=== PATIENT | female | born 1945 | race Caucasian/White ===

== ENCOUNTER 2018-08-11 14:55 | Observation (INO) | payer MEDICARE ==
[~2018-08-11] VITALS: Ht 162.6 cm; Wt 77.1 kg
[2018-08-11 16:04] LABS: BASOPHILS % 0.2 % (0.0-1.0); EOSINOPHILS % 0.2 % (0.0-6.0); HEMATOCRIT 47.1 % (34.2-44.1); HEMOGLOBIN 16.1 g/dL (12.0-16.0); LYMPHOCYTES # (AUTO) 0.4 (1.0-3.2); LYMPHOCYTES % 3.5 % (18.0-39.1); MEAN CORPUSCULAR HEMOGLOBIN 32.2 pg (28-32); MEAN CORPUSCULAR HGB CONC 34.2 g/dL (31-35); MEAN CORPUSCULAR VOLUME 94.2 fL (81-99); MONOCYTES # (AUTO) 0.5 (0.2-0.8); MONOCYTES % 5.1 % (4.4-11.3); NEUTROPHILS # (AUTO) 9.1 (2.1-6.9); NEUTROPHILS % 90.7 % (38.7-80.0); PLATELET COUNT 143 x10e3/uL (140-360)
[2018-08-11 16:17] LABS: ALBUMIN/GLOBULIN RATIO 0.8 (0.8-2.0); CALCIUM 10.3 mg/dL (8.4-10.2); CREATININE, SERUM 0.94 mg/dL (0.57-1.11)
[2018-08-11 16:24] LABS: CLARITY,URINE HAZY (CLEAR); COLOR,URINE YELLOW (YELLOW); LEUKOCYTE ESTERASE ,URINE 1+ (NEGATIVE); NITRITE,URINE NEGATIVE (NEGATIVE)
[2018-08-11 16:25] LABS: BILIRUBIN,URINE NEGATIVE (NEGATIVE); KETONES,URINE NEGATIVE (NEGATIVE); PROTEIN,URINE DIPSTICK 1+ (NEGATIVE); URINE UROBILINOGEN 0.2 mg/dL (0.2 - 1)
[2018-08-11 16:27] LABS: BACTERIA,URINE MANY /HPF; WBC,URINE (MAN) 21-50 /HPF (0-5)
[2018-08-11 16:28] LABS: AMORPHOUS SEDIMENT,URINE MODERATE (FEW); EPITHELIAL CELLS,URINE MODERATE /LPF; YEAST,URINE FEW
[2018-08-11] MEDS ORDERED: SODIUM CHLORIDE FLUSH 10 ML SYR INJ PRN (16:30)
[2018-08-11] MEDS: SODIUM CHLORIDE 0.9% 1000ML 1,000 ML IV SCH (16:59)
[2018-08-11] MEDS ORDERED: CEFTRIAXONE SOD 1 GM/NS 50 ML 50 ML IV SCH (17:00)
[2018-08-11] MEDS ORDERED: ACETAMINOPHEN 325 MG TAB PO STA (17:16)
--- NOTE | 2018-08-11 17:33 | NUR ---
report received from Leigh, patient to arrive to unit via stretcher alert and oriented.
--- NOTE | 2018-08-11 18:15 | NUR ---
patient arrived on unit, alert and oriented. call leal within reach, bed in lowest position and family at bedside.
[2018-08-11 18:40] VITALS: BP 157/74
--- NOTE | 2018-08-11 18:50 | NUR ---
rounded with machinist 2nd shift nurse, patient aware of change. call leal within reach and bed in lowest position.
--- NOTE | 2018-08-11 19:00 | NUR ---
Report received and walking rounds complete. Pt A&O and in no apparent distress. Pt resting in bed. All safety measures ensured, bed alarm on, and call leal near. Pt encouraged to use call leal for assistance.
[2018-08-11 19:25] VITALS: BP 132/60
[2018-08-11 19:59] VITALS: BP 132/60
[2018-08-12 00:10] VITALS: BP_SYST 106; BP_SYST 160; BP_DIAS 57; BP_DIAS 67
[2018-08-12] MEDS: SODIUM CHLORIDE 0.9% 1000ML 1,000 ML IV SCH (01:08)
[2018-08-12 05:01] VITALS: BP 127/60
[2018-08-12 05:30] LABS: BASOPHILS % 0.5 % (0.0-1.0); EOSINOPHILS # (AUTO) 0.3 (0.0-0.4); EOSINOPHILS % 4.2 % (0.0-6.0); HEMATOCRIT 39.6 % (34.2-44.1); HEMOGLOBIN 13.4 g/dL (12.0-16.0); LYMPHOCYTES # (AUTO) 0.5 (1.0-3.2); LYMPHOCYTES % 8.7 % (18.0-39.1); MEAN CORPUSCULAR HEMOGLOBIN 32.1 pg (28-32); MEAN CORPUSCULAR HGB CONC 33.8 g/dL (31-35); MEAN CORPUSCULAR VOLUME 94.7 fL (81-99); MONOCYTES # (AUTO) 0.8 (0.2-0.8); MONOCYTES % 13.2 % (4.4-11.3); NEUTROPHILS # (AUTO) 4.3 (2.1-6.9); NEUTROPHILS % 73.1 % (38.7-80.0); PLATELET COUNT 121 x10e3/uL (140-360); RED BLOOD COUNT 4.18 x10e6/uL (3.6-5.1); RED CELL DISTRIBUTION WIDTH 13.2 % (11.7-14.4)
[2018-08-12 05:55] LABS: ALANINE AMINOTRANSFERASE 26 IU/L (0-55); ALBUMIN 3.3 g/dL (3.5-5.0); ALKALINE PHOSPHATASE 56 IU/L (40-150); ANION GAP 10.4 mmol/L (8-16); BLOOD UREA NITROGEN 12 mg/dL (7-26); BUN/CREATININE RATIO 16 (6-25); CALCIUM 8.9 mg/dL (8.4-10.2); CARBON DIOXIDE 24 mmol/L (22-29); CHLORIDE 109 mmol/L (98-107); CREATININE, SERUM 0.77 mg/dL (0.57-1.11); EST GLOMERULAR FILTRATION RATE > 60 ML/MIN (60-); GLUCOSE 161 mg/dL (74-118); POTASSIUM 3.4 mmol/L (3.5-5.1); SODIUM 140 mmol/L (136-145)
--- NOTE | 2018-08-12 06:57 | NUR ---
Report given and walking rounds complete. Pt resting in bed and in no apparent distress. All safety measures ensured.
[2018-08-12 07:10] VITALS: BP 154/76
[2018-08-12 08:14] VITALS: BP 154/76
[2018-08-12] MEDS ORDERED: CIPRO500 MG PO (08:51)
[2018-08-12] MEDS ORDERED: DIFLUCAN100 MG PO (08:52)
--- NOTE | 2018-08-12 09:52 | NUR ---
patient alert and oriented. discharge instructions given at this time, patient verbalized understanding. IV discontinued, catheter in tact and small dressing applied. Patient to be wheeled to private auto for daughter to drive home.
--- NOTE | 2018-08-12 10:26 | NUR ---
Met with patient earlier this morning before she discharged. CASE MANAGEMENT INITIAL ASSESSMENT Tripe Scraper to bedside to discuss plan of care with patient/family. CM/SW role and care transitions discussed. Anticipated discharge plan discussed along with duration of care. CM/SW discussed patients right to make decisions in care. CM/SW work hours given. Patient lives: WITH HER DAUGHTER, LITA KNOX WHO WORKS HERE AT [facility] Admit/Transfer: ED THRU [facility] Hospital/ER visits since last admit: DENIES POA/Emergency contact: DAUGHTER: LITA KNOX [phone] Current/Previous Home Health: DENIES PCP/Follow-up Care: NONE. STATES HAS RECENTLY MOVED HERE Current/Previous DME: NONE Medications (referring to index hospitalization or the first time you were in the hospital) a. Were changes made in your medications when you were in the hospital on [date of index hospitalization]? Yes X No Not sure Explain: Note: If no or not sure, please skip to question d b. Did you understand the changes? Yes No Explain: c. Were you able to obtain your new medications right away? Yes No n/a SNF only Explain: d. Were you able to take your medications like the doctor wanted you to? X Yes No Explain: e. Did the hospital give you an accurate, easy to understand list of medications when you left? X Yes No n/a SNF only Explain: Scale of 1-10 how comfortable does patient feel with disease management in outpatient settin Other Services: Employment Status: RETIRED Areas of Concerns: NONE Referral Needs: NONE Education Needs: PRATER LETTER IMM/PRATER given and signed (if applicable): EDUCATED ON PRATER LETTER, VERBALIZED UNDERSTANDING AND SIGNED. COPY TO PT AND ORIGINAL PLACED IN CHART Goal for discharge:DC HOME TODAY W/O NEEDS CM/SW left business card at the bedside with contact information. Name and number was also written on the patients whiteboard. Patient verbalized understanding of discussion. CM will follow-up with ongoing discharge and transition of care needs.
--- NOTE | 2018-08-12 14:56 | History and Physical ---
CHIEF COMPLAINT: Allergic reaction to Macrobid and urinary tract infection. HISTORY OF PRESENT ILLNESS: A 73-year-old female, with urinary tract infection, came to outpatient urgent care, was given Macrobid, went home, had significant multiple symptoms of side effect of the Macrobid, came back to the emergency room here and was given Rocephin. The patient is otherwise stable. She denies any chest pain or shortness of breath. Her symptoms of dysuria, increase in urinary frequency have improved since giving Rocephin. The patient want to go home. PAST MEDICAL HISTORY: Urinary tract infection recurrent, but last was about approximately 6-9 months ago. Diabetes type 2. Hypertension. PAST SURGICAL HISTORY: Hysterectomy. SOCIAL HISTORY: The patient does not smoke or use alcohol. No recreational drugs. ALLERGIES: TO MACROBID. HOME MEDICATION: List was reviewed. REVIEW OF SYSTEMS: Asymptomatic. PHYSICAL EXAMINATION: VITAL SIGNS: Temperature is 98, blood pressure 127/62, pulse rate 88, respirations 18. GENERAL: The patient is in no acute distress. She is awake. HEENT: Normocephalic, atraumatic. Anicteric. NECK: Supple grossly. PULMONARY: Clear. CARDIOVASCULAR: Regular rate and rhythm. ABDOMEN: Soft and unremarkable. EXTREMITIES: No cyanosis or edema. NEUROLOGIC: No gross focal deficit. LABORATORY DATA: Sodium is 140, potassium 3.4, chloride is 109, bicarb 24, BUN is 12, creatinine 0.7, glucose 161. WBC is 5.8, hemoglobin 13.4, hematocrit 39.6, platelets are 121. Liver enzymes unremarkable. Urinalysis; 1+ leukocyte esterase, many bacteria, few yeast. IMPRESSION: 1. Urinary tract infection. 2. Allergic reaction to Macrobid. PLAN: Give the patient Rocephin. Discharge the patient with Cipro for now. We will give the patient some Diflucan as well. The patient is stable. She will need to follow up with her family physician for any further adjustment of her medication. The patient had tolerated Cipro treatment in the past. The patient is asymptomatic. She want to go home for the holiday and I agree. Discharge the patient home today. MD KEISHA Saeed/ANDRY /[id number]
--- NOTE | 2018-08-12 21:13 | Discharge Summary ---
Please review my history and physical I have dictated. DIAGNOSES: 1. Simple urinary tract infection. 2. Yeast in the urine. 3. Allergic reaction to Macrobid. The patient will go home with Diflucan and Cipro. Please review the prescription. The patient is stable, discharged home today. She is asymptomatic. No further workup needed at this time. The patient is to follow up with her family doctor within a week. MD KEISHA Saeed/SHANNONL /[id number]
== END 2018-08-12 10:05 | disposition home or self-care (01) ==
LOC: ER 14:55 → ERHOLD 16:41 → IMCU 18:15
PROVIDERS: ADMIT Internal Medicine; ATTEND Internal Medicine
DX: B37.49 Other urogenital candidiasis (principal); T37.8X5A Adverse effect of other specified systemic anti-infectives and antiparasitics, initial encounter
CPT/HCPCS: 36415 ×2; 80053 ×2; 81001; 82948 ×2; 85025 ×2; 87086; 99284; G0378 ×2; J0696; J7030

== ENCOUNTER → 2019-07-06 | Outpatient (CLI) | payer MEDICARE ==
[~2019-07-06] MED LIST: CIPRO500 MG PO; DIFLUCAN100 MG PO
== END ==
LOC: MAMMO 09:17
PROVIDERS: ATTEND Internal Medicine
DX: Z12.31 Encounter for screening mammogram for malignant neoplasm of breast (principal); M89.9 Disorder of bone, unspecified
CPT/HCPCS: 77067; 77080

== ENCOUNTER 2019-07-20 09:56 | Outpatient (RCR) | payer MEDICARE | END 2019-07-24 | LOC: PT 09:56 | PROVIDERS: ATTEND Orthopaedic Surgery | DX: M17.12 Unilateral primary osteoarthritis, left knee (principal) ==

== ENCOUNTER → 2020-04-23 | Outpatient (CLI) | payer MEDICARE, OTHER ==
[~2020-04-23] MED LIST changes: +COVID-19 VACC, MRNA(MODERNA)/PF 100 MCG/0.5 ML VIAL IM ONE
== END ==
LOC: VACCPMC 18:30
DX: Z23 Encounter for immunization (principal); Z20.828 Contact with and (suspected) exposure to other viral communicable diseases

== ENCOUNTER 2020-05-18 10:01 | Inpatient (IN) | payer MEDICARE, OTHER ==
[~2020-05-18] VITALS: Ht 165.1 cm; Wt 78.7 kg
[~2020-05-18 10:01] MED LIST changes: -COVID-19 VACC, MRNA(MODERNA)/PF 100 MCG/0.5 ML VIAL IM ONE
[2020-05-18] MEDS ORDERED: LEVOTHYROXINE75 MCG PO (10:39)
[2020-05-18] MEDS ORDERED: JANUVIA100 MG PO (10:39)
[2020-05-18] MEDS ORDERED: FOSINOPRIL SODI10 MG PO (10:39)
[2020-05-18] MEDS ORDERED: CRESTOR10 MG PO (10:39)
[2020-05-18] MEDS ORDERED: DEXTROSE 50% SYRINGE 50 ML IV PRN (20:00)
[2020-05-18] MEDS ORDERED: INSULIN LISPRO 100 UNIT/1 ML 3ML VIAL SQ SCH (21:00)
[2020-05-19] MEDS ORDERED: SIMVASTATIN 40 MG TAB PO SCH (09:00)
[2020-05-19] MEDS ORDERED: LEVOTHYROXINE SODIUM 75 MCG TAB PO SCH (09:00)
[2020-05-19] MEDS ORDERED: FOSINOPRIL SODIUM 10 MG TAB PO SCH (09:00)
== END 2020-05-18 20:38 | disposition left against medical advice (07) | DRG 310 ==
LOC: FSED 11:17 → ERHOLD 12:15
PROVIDERS: ADMIT Internal Medicine; ATTEND Internal Medicine
DX: R00.2 Palpitations (principal); I10 Essential (primary) hypertension; E78.5 Hyperlipidemia, unspecified; E03.9 Hypothyroidism, unspecified; D86.9 Sarcoidosis, unspecified; Z85.3 Personal history of malignant neoplasm of breast; E11.9 Type 2 diabetes mellitus without complications; Z20.822 Contact with and (suspected) exposure to COVID-19; I49.3 Ventricular premature depolarization
CPT/HCPCS: 71045; 80053; 84484; 85025; 93005; 99284; U0002

== ENCOUNTER → 2020-05-26 | Outpatient (CLI) | payer OTHER ==
[~2020-05-26] MED LIST changes: +COVID-19 VACC, MRNA(MODERNA)/PF 100 MCG/0.5 ML VIAL IM ONE; +CRESTOR10 MG PO; +FOSINOPRIL SODI10 MG PO; +JANUVIA100 MG PO; +LEVOTHYROXINE75 MCG PO
== END ==
LOC: VACCPMC 10:09
DX: Z23 Encounter for immunization (principal); Z20.822 Contact with and (suspected) exposure to COVID-19
CPT/HCPCS: 0012A; 91301

== ENCOUNTER → 2020-07-07 | Outpatient (CLI) | payer MEDICARE ==
[~2020-07-07] MED LIST changes: -COVID-19 VACC, MRNA(MODERNA)/PF 100 MCG/0.5 ML VIAL IM ONE
== END ==
LOC: MAMMO 09:33
PROVIDERS: ATTEND Internal Medicine
DX: Z12.31 Encounter for screening mammogram for malignant neoplasm of breast (principal)
CPT/HCPCS: 77067

== ENCOUNTER → 2020-11-03 | Outpatient (CLI) | payer MEDICARE | LOC: US 15:04 | PROVIDERS: ATTEND Internal Medicine | DX: L72.8 Other follicular cysts of the skin and subcutaneous tissue (principal) | CPT/HCPCS: 76882 ==

== ENCOUNTER → 2021-02-25 | Outpatient (CLI) | payer MEDICARE, OTHER ==
[~2021-02-25] MED LIST changes: +COVID-19 VACC, MRNA(MODERNA)/PF 100 MCG/0.5 ML VIAL IM ONE
== END ==
LOC: VACCPMC 09:15
DX: Z23 Encounter for immunization (principal); Z20.822 Contact with and (suspected) exposure to COVID-19
CPT/HCPCS: 91301

== ENCOUNTER → 2021-07-07 | Outpatient (CLI) | payer MEDICARE ==
[~2021-07-07] MED LIST changes: -COVID-19 VACC, MRNA(MODERNA)/PF 100 MCG/0.5 ML VIAL IM ONE
== END ==
LOC: MAMMO 09:44
PROVIDERS: ATTEND Internal Medicine
DX: Z12.31 Encounter for screening mammogram for malignant neoplasm of breast (principal)
CPT/HCPCS: 77067

== ENCOUNTER → 2022-08-04 | Outpatient (CLI) | payer MEDICARE | LOC: MAMMO 14:07 | PROVIDERS: ATTEND Internal Medicine | DX: Z12.31 Encounter for screening mammogram for malignant neoplasm of breast (principal) | CPT/HCPCS: 77067 ==

== ENCOUNTER → 2024-10-15 | Outpatient (REF) | payer MEDICARE | LOC: MAMMO 09:45 | PROVIDERS: ATTEND Internal Medicine | DX: Z12.31 Encounter for screening mammogram for malignant neoplasm of breast (principal) | CPT/HCPCS: 77067 ==